=== PATIENT | male | born 1930 | race Caucasian/White ===

== ENCOUNTER 2017-06-08 18:56 | Emergency (ER) | payer OTHER, MEDICARE ==
[~2017-06-08] VITALS: Ht 182.9 cm; Wt 86.2 kg
[~2017-06-08 18:56] MED LIST: GLUCOPHAGE XR500 MG PO; LOTREL 10-20 M1 EACH; LOTREL 10-20 M1 EACH PO; NAPROSYN500 MG PO; REGLAN 10 MG TA10 MG PO; ZOCOR
[2017-06-08 20:53] LABS: URINE BILIRUBIN NEGATIVE (Negative); URINE BLOOD 2+ (Negative); URINE CLARITY SL CLOUDY; URINE COLOR YELLOW; URINE GLUCOSE-RANDOM* NEGATIVE (Negative); URINE KETONES NEGATIVE (Negative); URINE LEUKOCYTES 3+ (Negative); URINE NITRITE POSITIVE (Negative); URINE PROTEIN (DIPSTICK) 1+ (Negative); URINE UROBILINOGEN 0.2 E.U./dl (0.2-1.0)
[2017-06-08 20:57] LABS: BACTERIA >30 Many /HPF (None Seen); SQUAMOUS None Seen /LPF (0-3); URINE RBC 3-10 Few /HPF (0-2); URINE WBC >25 Many /HPF (0-5)
[2017-06-08 20:58] LABS: AMORPHOUS URATES Few /LPF (None Seen); CASTS None Seen /LPF (None Seen)
[2017-06-08] MEDS ORDERED: KEFLEX500 M1 PO (20:58)
== END 2017-06-08 21:08 | disposition home or self-care (01) ==
LOC: ER 18:56
PROVIDERS: Emergency Medicine
DX: N39.0 Urinary tract infection, site not specified (principal); R50.9 Fever, unspecified; I10 Essential (primary) hypertension; E11.9 Type 2 diabetes mellitus without complications

== ENCOUNTER 2018-07-19 16:17 | Emergency (ER) | payer OTHER, MEDICARE ==
[~2018-07-19] VITALS: Ht 177.8 cm; Wt 83.9 kg
[~2018-07-19 16:17] MED LIST changes: +KEFLEX500 M1 PO
[2018-07-19 18:01] VITALS: BP 136/71
== END 2018-07-19 18:20 | disposition home or self-care (01) ==
LOC: ER 16:17
DX: S80.211A Abrasion, right knee, initial encounter (principal); M25.551 Pain in right hip; I10 Essential (primary) hypertension; E11.9 Type 2 diabetes mellitus without complications; Z90.49 Acquired absence of other specified parts of digestive tract; W18.39XA Other fall on same level, initial encounter; Y92.89 Other specified places as the place of occurrence of the external cause; Y93.89 Activity, other specified; Y99.8 Other external cause status

== ENCOUNTER 2018-12-27 08:26 | Emergency (ER) | payer OTHER, MEDICARE ==
[~2018-12-27] VITALS: Ht 175.3 cm; Wt 83.0 kg
[2018-12-27 08:51] LABS: ABSOLUTE NEUTROPHILS 9.3 thou/uL (1.4-8.2); BASOPHILS 0.5 % (0.0-2.0); HEMATOCRIT 39.6 % (42.0-52.0); HEMOGLOBIN 12.9 gm/dL (14.0-18.0); LYMPHOCYTES 7.5 % (24.0-44.0); MCHC 32.6 g/dL (28.0-37.0); MCV 86.1 fL (80.0-100.0); MONOCYTES 7.9 % (1.0-8.0); PLATELET COUNT 211 thou/uL (150-400); POLYS 84.1 % (36.0-66.0); RDW 16.2 % (10.5-14.5)
--- NOTE | 2018-12-27 08:53 | EKG ---
[place] [address] [facility] [place] [address] ELECTROCARDIOGRAM REPORT Name: PANCHO DIAZ JR Room #: [facility], INCLorelei#: [id number] ������������������ Admission: ������������������ Attend Phys: Discharge: ������������������ Date of : 32 Report #: [id number] ����������������������������������������������������������������� [id number] THIS REPORT FOR: //name// [facility] ED Test Date: 2018-12-27 Test Time: 08:32:48 Pat Name: PANCHO DIAZ Department: Room: Gender: Atm Servicer: jlmarlene : 1930 Requested By: Abdi Barber Order Number: [id number] MD: Jose Luis Cornelius Measurements Intervals [place] Rate: 79 P: 56 UT: 185 QRS: 7 QRSD: 86 T: 60 QT: 370 QTc: 425 Interpretive Statements Sinus rhythm Abnormal R-wave progression, early transition Compared to ECG 03/27/2013 04:59:30 Early repolarization no longer present Electronically Signed On 12-27-2018 8:53:12 CDT by Jose Luis Cornelius [email or web address] ��������������������������������������������� <ELECTRONICALLY SIGNED> ���������������������������������������� By: Jose Luis Cornelius MD, [facility] ��������������������������������������������� 12/27/18 0853 [id number] 1 Jose Luis Cornelius MD, FACC /EPI
[2018-12-27 09:02] LABS: ANION GAP 14 mmol/L (7-16); BUN 31 mg/dL (7-18); CALCIUM 9.3 mg/dL (8.5-10.1); CHLORIDE 100 mmol/L (98-107); CO2 18 mmol/L (21-32); CREATININE 1.5 mg/dL (0.7-1.3); GLUCOSE 186 mg/dL (74-106); POTASSIUM 3.7 mmol/L (3.5-5.1); SODIUM 132 mmol/L (136-145)
[2018-12-27 09:10] LABS: ALBUMIN 3.1 g/dL (3.4-5.0); LIPASE 101 U/L (73-393); SGOT 9 U/L (15-37); SGPT 16 U/L (30-65); TOTAL BILIRUBIN 0.8 mg/dL (<0.1-1.0); TOTAL PROTEIN 7.2 g/dL (6.4-8.2); TROPONIN-I <0.06 ng/mL (<0.06)
[2018-12-27 09:35] LABS: URINE BILIRUBIN NEGATIVE (Negative); URINE BLOOD 2+ (Negative); URINE CLARITY CLOUDY; URINE COLOR YELLOW; URINE GLUCOSE-RANDOM* NEGATIVE (Negative); URINE KETONES NEGATIVE (Negative); URINE LEUKOCYTES-REFLEX 3+ (Negative); URINE NITRITE-REFLEX POSITIVE (Negative); URINE PROTEIN (DIPSTICK) 1+ (Negative); URINE UROBILINOGEN 0.2 E.U./dl (0.2-1.0)
[2018-12-27 09:53] LABS: AMORPHOUS URATES Moderate /LPF (None Seen); BACTERIA-REFLEX >30 Many /HPF (None Seen); CASTS None Seen /LPF (None Seen); SQUAMOUS None Seen /LPF (0-3); URINE RBC 3-10 Few /HPF (0-2); URINE WBC-REFLEX >25 Many /HPF (0-5)
[2018-12-27] MEDS ORDERED: KEFLEX500 M1 PO (10:46)
[2018-12-27 10:58] VITALS: BP 123/66
== END 2018-12-27 11:08 | disposition home or self-care (01) ==
LOC: ER 08:26
PROVIDERS: Emergency Medicine
DX: N39.0 Urinary tract infection, site not specified (principal); I10 Essential (primary) hypertension; E11.9 Type 2 diabetes mellitus without complications; Z90.89 Acquired absence of other organs

== ENCOUNTER 2020-11-21 13:16 | Emergency (ER) | payer OTHER, MEDICARE ==
[~2020-11-21] VITALS: Ht 396.2 cm; Wt 79.4 kg
[2020-11-21 15:23] VITALS: BP 139/73
== END 2020-11-21 15:23 | disposition home or self-care (01) ==
LOC: ER 13:16
DX: S00.83XA Contusion of other part of head, initial encounter (principal); S50.11XA Contusion of right forearm, initial encounter; S00.93XA Contusion of unspecified part of head, initial encounter; I10 Essential (primary) hypertension; E11.9 Type 2 diabetes mellitus without complications; Z86.010 Personal history of colon polyps; W10.8XXA Fall (on) (from) other stairs and steps, initial encounter; Y92.89 Other specified places as the place of occurrence of the external cause; Y99.8 Other external cause status; Y93.89 Activity, other specified